=== PATIENT | male | born 1970 | race Caucasian/White ===

== ENCOUNTER 2017-06-28 14:17 | Emergency (ER) | payer MEDICAID, OTHER, SELFPAY ==
[2017-06-28] MEDS: NS 1,000 ML IV (15:26)
[2017-06-28] MEDS: ASPIRIN 81 MG CHEW TABLET PO (15:26)
[2017-06-28 15:36] LABS: BASO # 0.1 10^3/uL (0.0-0.2); BASO % 1.6 % (0.0-1.0); EOS # 0.2 10^3/uL (0.0-0.50); EOS % 2.9 % (0.0-3.0); HEMATOCRIT 48.3 % (42.0-52.0); HEMOGLOBIN 16.9 g/dl (14.0-18.0); IMMATURE GRANULOCYTE % 0.3 % (0-3.0); LYMPH # 1.7 10^3/uL (1.5-4.5); LYMPH % 28.2 % (24.0-44.0); MEAN CORPUSCULAR HEMOGLOBIN 33.2 pg (27.0-33.0); MEAN CORPUSCULAR VOLUME 94.9 fl (80.0-96.0); MONO # 0.7 10^3/uL (0.0-0.8); MONO % 10.9 % (0.0-5.0); NEUTROPHILS # 3.5 10^3/uL (1.8-7.7); NEUTROPHILS % 56.1 % (36.0-66.0); PLATELET COUNT, AUTOMATED 261 10^3/uL (150-450); RED BLOOD COUNT 5.09 10^6/uL (4.30-6.10); RED CELL DISTRIBUTION WIDTH 13.1 % (11.5-14.5); WHITE BLOOD COUNT 6.2 10^3/uL (4.0-10.0)
[2017-06-28 15:39] LABS: BEDSIDE GLUCOSE 89 MG/DL (70-105)
[2017-06-28 15:42] LABS: INR 0.99; PROTHROMBIN TIME 13.2 SECONDS (12.4-14.5)
[2017-06-28 15:43] LABS: PARTIAL THROMBOPLASTIN TIME 26.3 SECONDS (26.8-37.9)
[2017-06-28 15:49] LABS: ANION GAP 6 MEQ/L (8-16); BLOOD UREA NITROGEN 11 MG/DL (7-18); CALCIUM LEVEL 8.8 MG/DL (8.5-10.1); CARBON DIOXIDE LEVEL 30 MEQ/L (21-32); CHLORIDE LEVEL 103 MEQ/L (98-107); CPK CREATINE PHOSPHOKINASE 85 U/L (39-308); CREATININE FOR GFR 0.73 MG/DL (0.70-1.30); GLOMERULAR FILTRATION RATE > 60.0 (>60); GLUCOSE, FASTING 91 MG/DL (70-100); POTASSIUM SERUM 4.6 MEQ/L (3.5-5.1); SODIUM LEVEL 139 MEQ/L (136-145); TROPONIN I < 0.02 NG/ML (< 0.10)
[2017-06-28 15:50] LABS: MB/CK RELATIVE INDEX 1.17 (< OR =4)
== END 2017-06-28 15:50 | disposition short-term general hospital (02) ==
LOC: M ED 14:17
DX: I63.9 Cerebral infarction, unspecified (principal); I16.0 Hypertensive urgency; F17.200 Nicotine dependence, unspecified, uncomplicated
CPT/HCPCS: 70450

== ENCOUNTER → 2017-07-25 | Outpatient (REF) | payer OTHER, MEDICAID ==
[2017-07-25 20:55] LABS: ALBUMIN 4.3 GM/DL (3.2-5.2); ALBUMIN/GLOBULIN RATIO 1.08 (1.00-1.93); ALKALINE PHOSPHATASE 151 U/L (45-117); ALT/SGPT 70 U/L (12-78); ANION GAP 7 MEQ/L (8-16); AST/SGOT 42 U/L (7-37); BILIRUBIN,TOTAL 0.6 MG/DL (0.2-1.0); BLOOD UREA NITROGEN 19 MG/DL (7-18); CALCIUM LEVEL 9.3 MG/DL (8.5-10.1); CARBON DIOXIDE LEVEL 33 MEQ/L (21-32); CHLORIDE LEVEL 96 MEQ/L (98-107); CREATININE FOR GFR 0.84 MG/DL (0.70-1.30); GLOMERULAR FILTRATION RATE > 60.0 (>60); GLUCOSE, FASTING 93 MG/DL (70-100); POTASSIUM SERUM 3.7 MEQ/L (3.5-5.1); SODIUM LEVEL 136 MEQ/L (136-145); TOTAL PROTEIN 8.3 GM/DL (6.4-8.2)
[2017-07-25 21:12] LABS: INR 0.93; PROTHROMBIN TIME 12.6 SECONDS (12.4-14.5)
[2017-07-25 21:13] LABS: PARTIAL THROMBOPLASTIN TIME 28.7 SECONDS (26.8-37.9)
== END ==
LOC: M SFHCLERA 17:48
DX: Z86.73 Personal history of transient ischemic attack (TIA), and cerebral infarction without residual deficits (principal)

== ENCOUNTER 2017-08-30 12:29 | Emergency (ER) | payer OTHER, MEDICAID ==
[2017-08-30 13:51] LABS: BASO # 0.1 10^3/uL (0.0-0.2); BASO % 1.5 % (0.0-1.0); EOS # 0.3 10^3/uL (0.0-0.50); EOS % 4.3 % (0.0-3.0); HEMATOCRIT 43.3 % (42.0-52.0); HEMOGLOBIN 15.2 g/dl (13.5-17.5); IMMATURE GRANULOCYTE % 0.3 % (0-3.0); LYMPH # 1.6 10^3/uL (1.5-4.5); LYMPH % 24.3 % (24.0-44.0); MEAN CORPUSCULAR HGB CONC 35.1 g/dl (32.0-36.5); MEAN CORPUSCULAR VOLUME 91.2 fl (80.0-96.0); MONO # 0.7 10^3/uL (0.0-0.8); MONO % 10.1 % (0.0-5.0); NEUTROPHILS % 59.5 % (36.0-66.0); PLATELET COUNT, AUTOMATED 239 10^3/uL (150-450); RED BLOOD COUNT 4.75 10^6/uL (4.30-6.10); RED CELL DISTRIBUTION WIDTH 12.2 % (11.5-14.5); WHITE BLOOD COUNT 6.7 10^3/uL (4.0-10.0)
[2017-08-30 14:15] LABS: C REACTIVE PROTEIN QUANTITATIV 0.37 MG/DL (0.00-0.30)
[2017-08-30 14:35] LABS: ERYTHROCYTE SEDIMENTATION RATE 9 mm/hr (0-15)
== END 2017-08-30 15:48 | disposition home or self-care (01) ==
LOC: M ED 12:29
DX: I10 Essential (primary) hypertension (principal); E78.9 Disorder of lipoprotein metabolism, unspecified; Z87.891 Personal history of nicotine dependence
CPT/HCPCS: 70450

== ENCOUNTER 2017-09-14 11:22 | Day surgery (SDC) | payer OTHER ==
[2017-09-14] MEDS ORDERED: LR 1,000 ML IV (11:30)
[2017-09-14] MEDS: ceFAZolin SOD 1 GM in D5W MINI-BAG PLUS 50 ML IV (13:30)
[2017-09-14] MEDS ORDERED: LIDOCAINE 2% INJ 100 MG/5 ML SDV (FOR ANES.) As Ordered (13:50)
[2017-09-14] MEDS ORDERED: PROPOFOL 200 MG/20 ML VIAL As Ordered (13:50)
[2017-09-14] MEDS ORDERED: MIDAZOLAM INJ 2 MG/2 ML VIAL (J2250) As Ordered (13:50)
[2017-09-14] MEDS ORDERED: fentaNYL 100 MCG/2 ML INJECTION (J3010) As Ordered (13:50)
[2017-09-14] MEDS: LIDOCAINE 1% SDV INJ 30 ML VIAL As Ordered (13:54)
[2017-09-14] MEDS ORDERED: ACETAMINOPHEN TAB 650MG DOSE (2X325MG) PO (14:45)
[2017-09-15] MEDS ORDERED: CLOPIDOGREL 75 MG TAB PO (09:00)
== END 2017-09-14 15:30 | disposition home or self-care (01) ==
LOC: M SDC 11:22
DX: I63.9 Cerebral infarction, unspecified (principal); I11.9 Hypertensive heart disease without heart failure; R94.31 Abnormal electrocardiogram [ECG] [EKG]; E78.5 Hyperlipidemia, unspecified; E66.3 Overweight; G25.81 Restless legs syndrome; Z79.899 Other long term (current) drug therapy; Z79.82 Long term (current) use of aspirin; Z87.891 Personal history of nicotine dependence
CPT/HCPCS: 33282

== ENCOUNTER 2017-09-15 12:54 | Day surgery (SDC) | payer OTHER ==
[2017-09-15] MEDS: NS 1,000 ML IV (13:45)
[2017-09-15] MEDS: LIDOCAINE VISCOUS 2% SOLN 15ML UDC SS (13:53)
[2017-09-15] MEDS ORDERED: LIDOCAINE VISCOUS 2% SOLN 15ML UDC As Ordered (13:53)
[2017-09-15] MEDS ORDERED: MIDAZOLAM INJ 2 MG/2 ML VIAL (J2250) As Ordered ×3 (13:54→13:55)
[2017-09-15] MEDS: MIDAZOLAM INJ 2 MG/2 ML VIAL (J2250) IV ×2 (13:58→14:00)
== END 2017-09-15 14:50 | disposition home or self-care (01) ==
LOC: M OPP 12:54
DX: I63.9 Cerebral infarction, unspecified (principal); R94.31 Abnormal electrocardiogram [ECG] [EKG]; I10 Essential (primary) hypertension; I11.9 Hypertensive heart disease without heart failure; E78.5 Hyperlipidemia, unspecified; R60.0 Localized edema; E66.3 Overweight; G25.81 Restless legs syndrome; Z79.82 Long term (current) use of aspirin; Z79.899 Other long term (current) drug therapy; Z87.891 Personal history of nicotine dependence
CPT/HCPCS: J2250